=== PATIENT | male | born 1965 | race Caucasian/White ===

== ENCOUNTER → 2020-06-02 | Outpatient (CLI) | payer BC ==
[2020-06-02 16:19] LABS: Basophils # (A) 0.1 k/uL (0-0.2); Basophils % (A) 1 %; Eosinophils # (A) 0.2 k/uL (0-0.7); Eosinophils % (A) 3 %; HCT 43.6 % (39.0-53.0); HGB 14.3 gm/dL (13.0-17.5); Lymphocytes # (A) 1.9 k/uL (1.0-4.8); Lymphocytes % (A) 30 %; MCH 29.6 pg (25.0-35.0); MCHC 32.7 g/dL (31.0-37.0); MCV 90.6 fL (80.0-100.0); Mean Platelet Volume 8.1; Monocytes # (A) 0.5 k/uL (0-1.0); Monocytes % (A) 7 %; Neutrophils # (A) 3.6 k/uL (1.3-7.7); Neutrophils % (A) 57 %; Platelet Count 182 k/uL (150-450); RBC 4.82 m/uL (4.30-5.90); RDW 12.5 % (11.5-15.5); WBC 6.3 k/uL (3.8-10.6)
[2020-06-02 16:27] LABS: Potassium 4.1 mmol/L (3.5-5.1)
== END | disposition home or self-care (01) ==
LOC: LABPAT 15:52
PROVIDERS: ATTEND Orthopaedic Surgery
DX: Z01.818 Encounter for other preprocedural examination (principal); M75.42 Impingement syndrome of left shoulder
CPT/HCPCS: 36415; 80051; 85025; 93005

== ENCOUNTER 2020-06-08 08:56 | Day surgery (SDC) | payer BC ==
[2020-06-06 14:49] VITALS: BMI 33.3
--- NOTE | 2020-06-07 14:04 | HP ---
HISTORY AND PHYSICAL DATE OF SURGERY: 06/08/2020 Aroldo Stein is a 54-year-old patient seen with progressive left shoulder pain. We discussed options, he elected to proceed with arthroscopy. Consent regarding procedure was obtained. PAST MEDICAL HISTORY: Noncontributory. PAST SURGICAL HISTORY: Right shoulder arthroscopy, finger surgery. DAILY MEDICATIONS: None. ALLERGIES: None. SOCIAL HISTORY: He denies current tobacco use. PHYSICAL EVALUATION OF THE LEFT SHOULDER: Flexion is 140, abduction is 120, external rotation is 30 with weakness, tenderness along the anterior lateral acromion rotator cuff insertion site. Impingement sign is positive at 90 degrees. Distal neurovascular exam is intact. Drop-arm sign positive. RADIOGRAPHS LEFT SHOULDER: Type 2 anterior acromion, acromioclavicular joint osteoarthritis and cystic changes of the greater tuberosity. An MRI of the left shoulder revealed a partial rotator cuff tendon tear, labral tear and biceps tendinitis. IMPRESSION: 1. Left shoulder impingement with rotator cuff tear. 2. Left shoulder acromioclavicular joint osteoarthritis. 3. Left shoulder bicipital tendinitis. PLAN: Left shoulder arthroscopy with subacromial decompression, arthroscopic rotator cuff repair, Mariam procedure, probable biceps tenotomy and debridement. MMODL / IJN: [id number] /
[~2020-06-08 08:56] MED LIST: DEXAMETHASONE SOD PHOSPHATE 10 MG/ML 1 ML VIAL IV ONE; HYDROmorphone 0.5 MG/0.5 ML SYRINGE IVP PRN; LIDOCAINE 1% (10MG/ML) FOR IV START INTRADERMA PRN; MIDAZOLAM 2 MG/2 ML VIAL IV PRN; ONDANSETRON 4 MG/2 ML VIAL IVP ONE
[2020-06-08] MEDS: LACTATED RINGERS 1,000 ML IV SCH ×2 (09:28→10:35)
--- NOTE | 2020-06-08 10:12 | P.ANPRN ---
Procedure Note - Anesthesia - Nerve Block Performed Left Interscalene Single Time Out Performed: Yes ([id number]) Date of Procedure: 06/08/20 Procedure Start Time: 09:57 Procedure Stop Time: 10:05 Location of Patient: PreOp Indication: Acute Post-Operative Pain, Analgesia, Requested by Surgeon Specifically requested for management of pain by DrRehan: Alejandro Angeles Sedation Type: Sedate with meaningful contact maintained Preparation: Sterile Prep Position: Supine Needle Types: Pajunk Needle Gauge: 21 Ultrasound used to visualize needle placement: Yes Ultrasound used to observe medication spread: Yes Injectate: 0.5% Ropivacaine (see comment for volume) (20 mL) Blood Aspirated: No Pain Paresthesia on Injection Noted: No Resistance on Injection: Normal Image Stored and Saved: Yes Events: Uneventful and Well Tolerated
[2020-06-08 10:16] VITALS: RESP 16
[2020-06-08] MEDS ORDERED: SUCCINYLCHOLINE CHLORIDE 100 MG/5 ML SYR IV ONE (10:30)
[2020-06-08] MEDS ORDERED: LIDOCAINE 1% INJ 10MG/ML (20 ML MDV) ONE (10:30)
[2020-06-08] MEDS ORDERED: ROPIVACAINE 5 MG/ML 30 ML VIAL ONE (10:30)
[2020-06-08] MEDS ORDERED: MIDAZOLAM 2 MG/2 ML VIAL ONE (10:30)
[2020-06-08] MEDS ORDERED: PROPOFOL 10 MG/ML 20 ML VIAL IV ONE (10:30)
[2020-06-08] MEDS ORDERED: fentaNYL (PF) 50 MCG/ML 2 ML AMP ONE (10:30)
[2020-06-08 12:20] VITALS: TEMP 96.8
--- NOTE | 2020-06-08 12:30 | P.OP ---
Date of Procedure: 06/08/20 Preoperative Diagnosis: Left shoulder impingement Postoperative Diagnosis: 1. Left shoulder rotator cuff tear 2. Left shoulder impingement 3. Left shoulder acromioclavicular joint osteoarthritis 4. Left shoulder partial long head biceps tendon tear 5. Left shoulder superficial labral tear Procedure(s) Performed: 1. Left shoulder arthroscopic rotator cuff repair 2. Left shoulder arthroscopic subacromial decompression 3. Left shoulder arthroscopic Mariam procedure 4. Left shoulder arthroscopic biceps tenotomy 5. Left shoulder debridement labral tear Implants: 14.75 Arthrex swivel lock anchor Anesthesia: GETA, regional (Interscalene block) Surgeon: Alejandro Angeles [employer] Vice President #1: Estiven Leahy Estimated Blood Loss (ml): 7 Pathology: none sent Condition: stable Disposition: PACU Indications for Procedure: 54-year-old patient seen with progressive left shoulder pain. After treatment options were discussed, he elected to proceed with arthroscopy. Operative Findings: See description of procedure Description of Procedure: Patient underwent an interscalene block by department of anesthesia. The patient was then taken to the operative suite. The patient underwent a general anesthetic by the department of anesthesia. The patient was placed into a lateral position and secured. There was appropriate padding of the bony prominence. Left shoulder was then prepped and draped in normal sterile orthopedic fashion. We placed the extremity in 10 pounds of longitudinal traction. A posterior incision was now made for a posterior working portal site. The trocar and cannula were inserted into the glenohumeral joint. Arthroscopy was initiated. Spinal needle was now inserted anteriorly, to ascertain the anterior working portal site. An incision was now made in that area, a trocar was inserted followed by a probe. There was superficial tearing of the superior labrum. There was partial tearing and hyperemia long head biceps tendon. There were grade 1 chondromalacia changes of glenohumeral joint. I performed an arthroscopic biceps tenotomy. I debrided that superficial labral tear. Residual labrum was probed and found to be stable. Instruments now removed from glenohumeral joint. Utilizing the posterior working portal site, the trocar and cannula were inserted into the subacromial space. Arthroscopy initiated. I made an incision 2 fingerbreadths lateral to the acromion. I introduced my trocar followed by my ArthroCare ablator. I now began ablating thick subacromial bursal tissue, which exposed the undersurface of the anterior acromion. There was diminished subacromial space. There was a very prominent anterior acromion. A motorized bur was introduced and a subacromial decompression was performed. I also excised some osteophytes off the inferior aspect of the distal clavicle. The AC joint was visualized and noted to be fairly arthritic. The motorized bur was introduced in the anterior portal site and a Mariam procedure was performed without difficulty, decompressing the AC joint nicely. I turned my attention to the rotator cuff tendon. I noted some partial tearing along the distal supraspinatus area. Upon probing the area there was no obvious full-thickness perforation. I motorize shaver to debride the tendon getting down to stable tendon tissue. The defect measured 11.5 cm but was freely mobile over the footprint. I abraded the footprint with a motorized bur. I passed 2 everted mattress sutures through good bites of rotator cuff tendon. A partial hole and the footprint for insertional anchor. All 4 limbs of suture were now passed through the eyelet of a 4.75 Arthrex swivel lock anchor. The eyelet was now placed into the pre-punch hole. I held it in position while Rober ARCHER tensioned all 4 sutures and deployed the anchor with good fixation noted. All residual suture limbs were now clipped. We had good compression of the tendon along the entire footprint. I injected 1 mL Renyte intra-articular. Instruments now removed from the portal sites. All portal sites were approximated with nylon suture. Sterile dressings were applied followed by a shoulder sling. Estiven ARCHER assisted in this complex case. The patient was awakened, transferred to a bed, and taken to recovery in stable condition.
[2020-06-08 13:16] VITALS: BP 140/89; PULSE 64
== END 2020-06-08 13:40 | disposition home or self-care (01) ==
LOC: OR 08:56
PROVIDERS: ATTEND Orthopaedic Surgery
DX: M75.112 Incomplete rotator cuff tear or rupture of left shoulder, not specified as traumatic (principal); M75.42 Impingement syndrome of left shoulder; M19.012 Primary osteoarthritis, left shoulder; M75.22 Bicipital tendinitis, left shoulder; S46.112A Strain of muscle, fascia and tendon of long head of biceps, left arm, initial encounter; S43.432A Superior glenoid labrum lesion of left shoulder, initial encounter; M25.712 Osteophyte, left shoulder; Z98.890 Other specified postprocedural states
CPT/HCPCS: 64415; 76942; 29824; 29826; 29827; Q4212; J2250; J1100; J0690; J2405; J2001; J3010; J2795; J0330; J2704

== ENCOUNTER 2020-09-05 16:24 | Observation (INO) | payer BC ==
[2020-09-05 17:46] LABS: Basophils # (A) 0.1 k/uL (0-0.2); Basophils % (A) 1 %; Eosinophils # (A) 0.3 k/uL (0-0.7); Eosinophils % (A) 3 %; HCT 44.5 % (39.0-53.0); HGB 15.1 gm/dL (13.0-17.5); Lymphocytes # (A) 2.2 k/uL (1.0-4.8); Lymphocytes % (A) 28 %; MCH 30.4 pg (25.0-35.0); MCHC 33.9 g/dL (31.0-37.0); MCV 89.7 fL (80.0-100.0); Mean Platelet Volume 8.1; Monocytes # (A) 0.5 k/uL (0-1.0); Monocytes % (A) 7 %; Neutrophils # (A) 4.6 k/uL (1.3-7.7); Neutrophils % (A) 59 %; Platelet Count 199 k/uL (150-450); RBC 4.96 m/uL (4.30-5.90); RDW 12.6 % (11.5-15.5); WBC 7.8 k/uL (3.8-10.6)
[2020-09-05 17:55] LABS: INR 0.9 (<1.2); Partial Thromboplastin Time 23.3 sec (22.0-30.0); Prothrombin Time 10.2 sec (9.0-12.0)
[2020-09-05 17:58] LABS: ALT 44 U/L (4-49); AST 36 U/L (17-59); African American GFR (CKD) >90 (>60 ml/min/1.73 sqM); Albumin 4.2 g/dL (3.5-5.0); Alkaline Phosphatase 92 U/L (38-126); Anion Gap 8 mmol/L; Blood Urea Nitrogen 18 mg/dL (9-20); Calcium 9.6 mg/dL (8.4-10.2); Carbon Dioxide 25 mmol/L (22-30); Chloride 108 mmol/L (98-107); Glucose 87 mg/dL (74-99); Non-African American GFR(CKD) >90 (>60 ml/min/1.73 sqM); Potassium 4.6 mmol/L (3.5-5.1); Sodium 141 mmol/L (137-145); Total Bilirubin 0.5 mg/dL (0.2-1.3); Total Protein 7.5 g/dL (6.3-8.2)
[2020-09-05] MEDS ORDERED: NITROGLYCERIN OINT 1 INCH/GM PACKET TOPICAL STA (18:05)
[2020-09-05] MEDS ORDERED: ASPIRIN 81 MG PO STA (18:05)
--- NOTE | 2020-09-05 18:08 | ED ---
General Adult HPI - General Chief complaint: Chest Pain Stated complaint: Chest pain Time Seen by Provider: 09/05/20 16:40 Source: patient, family, RN notes reviewed Mode of arrival: wheelchair Limitations: no limitations - History of Present Illness Initial comments: Patient is a pleasant 54-year-old male presenting to the emergency Department with complaints of chest discomfort. Onset of symptoms was a few days ago. Symptoms have been waxing and waning. Symptoms are mild at this time. Symptoms are not since early exertional. Patient does have some chest discomfort that is difficult for him to describe. There is some mild palpitations. No associated dyspnea, nausea, or diaphoresis. - Related Data Previous Rx's Medication Instructions Recorded Hydrocodone/Acetaminophen [[place] 1 each PO Q6H PRN #21 tab 06/08/20 10325] Allergies Allergy/AdvReac Type Severity Reaction Status Date / Time No Known Allergies Allergy Verified 09/05/20 16:32 Review of Systems ROS Statement: Those systems with pertinent positive or pertinent negative responses have been documented in the HPI. ROS Other: All systems not noted in ROS Statement are negative. Constitutional: Denies: fever Eyes: Denies: eye pain ENT: Denies: ear pain Respiratory: Denies: dyspnea Cardiovascular: Reports: chest pain, palpitations Endocrine: Denies: fatigue Gastrointestinal: Denies: abdominal pain Genitourinary: Denies: dysuria Musculoskeletal: Denies: back pain Skin: Denies: rash Neurological: Denies: weakness Past Medical History Past Medical History: No Reported History History of Any Multi-Drug Resistant Organisms: None Reported Past Surgical History: Orthopedic Surgery Additional Past Surgical History / Comment(s): rt upper arm sx. multiple rt ear sx. lt middle finger sx Past Anesthesia/Blood Transfusion Reactions: No Reported Reaction Past Psychological History: No Psychological Hx Reported Smoking Status: Never smoker Past Alcohol Use History: None Reported Past Drug Use History: None Reported - Past Family History Father Family Medical History: Cancer General Exam Limitations: no limitations General appearance: alert, in no apparent distress Head exam: Present: normocephalic Eye exam: Present: normal appearance Neck exam: Present: normal inspection Respiratory exam: Present: normal lung sounds bilaterally. Absent: chest wall tenderness Cardiovascular Exam: Present: regular rate, normal rhythm Expanded Peripheral pulses: 2+: Radial (R), Radial (L), Posterior Tibialis (R), Posterior Tibialis (L) GI/Abdominal exam: Present: soft. Absent: tenderness Extremities exam: Present: normal inspection. Absent: pedal edema, calf tenderness Neurological exam: Present: alert Psychiatric exam: Present: normal affect, normal mood Skin exam: Present: normal color Course Vital Signs 09/05/20 09/05/20 16:29 18:25 Temperature 98.8 F Pulse Rate 66 66 Respiratory 18 16 Rate Blood Pressure 134/81 132/89 O2 Sat by Pulse 96 98 Oximetry EKG Findings - EKG Comments: EKG Findings:: Normal sinus rhythm at 60. MS 162. QRS 160. QT 434. QTC 434. Left axis. Right bundle branch block. No acute ST change. Medical Decision Making - Medical Decision Making Patient reevaluated and resting comfortably in bed. Symptoms have improved with nitroglycerin. Patient updated on results and plan. Case was discussed in detail with Dr. Zamorano, who will admit covering for Dr. Hart. - Lab Data Result diagrams: 09/05/20 17:34 09/05/20 17:34 Lab Results 09/05/20 09/05/20 09/05/20 Range/Units 17:34 17:34 17:34 WBC 7.8 (3.8-10.6) k/uL RBC 4.96 (4.30-5.90) m/uL Hgb 15.1 (13.0-17.5) gm/dL Hct 44.5 (39.0-53.0) % MCV 89.7 (80.0-100.0) fL MCH 30.4 (25.0-35.0) pg MCHC 33.9 (31.0-37.0) g/dL RDW 12.6 (11.5-15.5) % Plt Count 199 (150-450) k/uL MPV 8.1 Neutrophils % 59 % Lymphocytes % 28 % Monocytes % 7 % Eosinophils % 3 % Basophils % 1 % Neutrophils # 4.6 (1.3-7.7) k/uL Lymphocytes # 2.2 (1.0-4.8) k/uL Monocytes # 0.5 (0-1.0) k/uL Eosinophils # 0.3 (0-0.7) k/uL Basophils # 0.1 (0-0.2) k/uL PT 10.2 (9.0-12.0) sec INR 0.9 (<1.2) APTT 23.3 (22.0-30.0) sec D-Dimer (<0.60) mg/L FEU Sodium 141 (137-145) mmol/L Potassium 4.6 (3.5-5.1) mmol/L Chloride 108 H (98-107) mmol/L Carbon Dioxide 25 (22-30) mmol/L Anion Gap 8 mmol/L BUN 18 (9-20) mg/dL Creatinine 0.78 (0.66-1.25) mg/dL Est GFR (CKD-EPI)AfAm >90 (>60 ml/min/1.73 sqM) Est GFR (CKD-EPI)NonAf >90 (>60 ml/min/1.73 sqM) Glucose 87 (74-99) mg/dL Calcium 9.6 (8.4-10.2) mg/dL Total Bilirubin 0.5 (0.2-1.3) mg/dL AST 36 (17-59) U/L ALT 44 (4-49) U/L Alkaline Phosphatase 92 (38-126) U/L Troponin I (0.000-0.034) ng/mL Total Protein 7.5 (6.3-8.2) g/dL Albumin 4.2 (3.5-5.0) g/dL 09/05/20 09/05/20 Range/Units 17:34 17:34 WBC (3.8-10.6) k/uL RBC (4.30-5.90) m/uL Hgb (13.0-17.5) gm/dL Hct (39.0-53.0) % MCV (80.0-100.0) fL MCH (25.0-35.0) pg MCHC (31.0-37.0) g/dL RDW (11.5-15.5) % Plt Count (150-450) k/uL MPV Neutrophils % % Lymphocytes % % Monocytes % % Eosinophils % % Basophils % % Neutrophils # (1.3-7.7) k/uL Lymphocytes # (1.0-4.8) k/uL Monocytes # (0-1.0) k/uL Eosinophils # (0-0.7) k/uL Basophils # (0-0.2) k/uL PT (9.0-12.0) sec INR (<1.2) APTT (22.0-30.0) sec D-Dimer 0.45 (<0.60) mg/L FEU Sodium (137-145) mmol/L Potassium (3.5-5.1) mmol/L Chloride (98-107) mmol/L Carbon Dioxide (22-30) mmol/L Anion Gap mmol/L BUN (9-20) mg/dL Creatinine (0.66-1.25) mg/dL Est GFR (CKD-EPI)AfAm (>60 ml/min/1.73 sqM) Est GFR (CKD-EPI)NonAf (>60 ml/min/1.73 sqM) Glucose (74-99) mg/dL Calcium (8.4-10.2) mg/dL Total Bilirubin (0.2-1.3) mg/dL AST (17-59) U/L ALT (4-49) U/L Alkaline Phosphatase (38-126) U/L Troponin I <0.012 (0.000-0.034) ng/mL Total Protein (6.3-8.2) g/dL Albumin (3.5-5.0) g/dL - Radiology Data Radiology results: image reviewed (Chest x-ray shows no acute process) Disposition Clinical Impression: Chest pain Disposition: ADMITTED IP TO THIS [facility] Is patient prescribed a controlled substance at d/c from ED?: No Referrals: Rodrigue Stockton MD [Primary Care Provider] - 1-2 days Decision Time: 19:08
--- NOTE | 2020-09-05 18:18 | XR ---
EXAMINATION TYPE: XR chest 1V portable DATE OF EXAM: 09/05/2020 COMPARISON: NONE HISTORY: Chest pain TECHNIQUE: Single view FINDINGS: Heart and mediastinum are normal. Lungs are clear. Diaphragm is normal. Bony thorax appears normal. IMPRESSION: Normal chest.
[2020-09-05] MEDS ORDERED: NITROGLYCERIN SL TABS 0.4 MG TAB SUBLINGUAL PRN (19:08)
[2020-09-06] MEDS: NITROGLYCERIN OINT 1 INCH/GM PACKET TOPICAL SCH ×2 (02:10→07:48)
[2020-09-06 07:08] LABS: Cholesterol 186 mg/dL (<200); HDL Cholesterol 33 mg/dL (40-60); LDL Cholesterol,Calculated 130 mg/dL (0-99); Triglycerides 113 mg/dL (<150)
[2020-09-06 08:45] VITALS: TEMP 98.2
[2020-09-06] MEDS ORDERED: ASPIRIN 325 MG TAB PO SCH (09:00)
[2020-09-06 09:38] VITALS: RESP 16
--- NOTE | 2020-09-06 10:12 | P.CRDCN ---
History of Present Illness Consult date: 09/06/20 History of present illness: CHIEF COMPLAINT: Chest pain HISTORY OF PRESENT ILLNESS: This is a 54-year-old male with no significant past medical history. The patient does not follow with a bath steward. We have been asked to see the patient in consultation for chest pain. Patient states he began having some left-sided chest pain that started approximately 4 days ago. He describes this as a heaviness. He denies any shortness of breath. Denies dizziness or lightheadedness. Denies nausea or vomiting. The pain is not worse with movement or deep inspiration. The patient did have a recent rotator cuff repair approximately 12 weeks ago. Patient states she thought the pain was secondary to his physical therapy for his shoulder. He states he stopped doing all the exercises prescribed to him by his therapists, but he continued to have the discomfort so he presented to the ER for further evaluation. Patient states his mother had a CABG in her 80s, his sister had a CABG in her 70s and his other sister has a history of atrial fibrillation. DIAGNOSTICS: EKG reveals sinus mechanism with right bundle branch block. No signs of acute ischemia. Chest xray negative for acute process Laboratory data: WBC 7.8. Hemoglobin 15.1. Platelet count 199. D-dimer 0.45. Sodium 141. Potassium 4.6. BUN 18. Creatinine 0.78. Troponin negative 3. Current home cardiac medications include none REVIEW OF SYSTEMS: At the time of my exam: CONSTITUTIONAL: Denies fever or chills. HEENT: Denies blurred vision, vision changes, or eye pain. Denies hemoptysis CARDIOVASCULAR: Denies chest pain, orthopnea, PND or palpitations RESPIRATORY: No shortness of breath. GASTROINTESTINAL: Denies abdominal pain. Denies nausea or vomiting. HEMATOLOGIC: Denies bleeding disorders. GENITOURINARY: Denies any blood in urine. SKIN: Denies pruitis. Denies rash. PHYSICAL EXAM: VITAL SIGNS: Reviewed. GENERAL: Well-developed in no acute distress. HEENT: Head is normocephalic. Pupils are equal, round. Sclerae anicteric. Mucous membranes of the mouth are moist. Neck supple. No JVD or thyromegaly LUNGS: Respirations even and unlabored. Lungs essentially clear to auscultation bilaterally. HEART: Regular rate and rhythm. S1 and S2 heard. ABDOMEN: Soft. Nondistended. Nontender. EXTREMITIES: Normal range of motion. No clubbing or cyanosis. Peripheral pulses intact. No lower extremity edema NEUROLOGIC: Awake and alert. Oriented x 3. ASSESSMENT: Chest pain, troponins negative 3 Recent rotator cuff repair Family history of coronary artery disease PLAN: An acute coronary event has been ruled out Obtain 2-D echo to assess cardiac structure and function Patient to undergo stress echo today to assess for reversible ischemia Nurse practitioner note has been reviewed by physician. Signing provider agrees with the documented findings, assessment, and plan of care. Past Medical History Past Medical History: No Reported History History of Any Multi-Drug Resistant Organisms: None Reported Past Surgical History: Orthopedic Surgery Additional Past Surgical History / Comment(s): rt upper arm sx. multiple rt ear sx. lt middle finger sx Past Anesthesia/Blood Transfusion Reactions: No Reported Reaction Past Psychological History: No Psychological Hx Reported Smoking Status: Never smoker Past Alcohol Use History: None Reported Past Drug Use History: None Reported - Past Family History Father Family Medical History: Cancer Medications and Allergies Home Medications Medication Instructions Recorded Confirmed Type Cholecalciferol [Vitamin D3 (25 1,000 unit PO DAILY 09/05/20 09/05/20 History Mcg = 1000 Iu)] Multivitamins, Thera [Multivitamin 1 tab PO DAILY 09/05/20 09/05/20 History (formulary)] Zinc Gluconate [Zinc] 50 mg PO DAILY 09/05/20 09/05/20 History Allergies Allergy/AdvReac Type Severity Reaction Status Date / Time No Known Allergies Allergy Verified 09/05/20 19:06 Physical Exam Vitals: Vital Signs Temp Pulse Pulse Pulse Resp BP BP 09/06/20 08:50 90 16 148/85 09/06/20 08:43 98.2 F 66 18 120/74 09/06/20 08:38 98.4 F 70 17 120/74 09/06/20 07:41 98.4 F 57 L 16 98/55 09/06/20 07:39 58 L 09/06/20 06:49 98.1 F 63 14 94/64 09/06/20 03:01 98.1 F 59 L 64 16 124/85 09/05/20 22:18 98 F 57 L 15 112/72 09/05/20 19:27 98 F 63 15 111/70 09/05/20 18:25 66 16 132/89 01/04/21 16:29 98.8 F 66 18 134/81 Pulse Ox 09/06/20 08:50 97 09/06/20 08:43 98 09/06/20 08:38 99 09/06/20 07:41 97 09/06/20 07:39 09/06/20 06:49 98 09/06/20 03:01 98 09/05/20 22:18 96 09/05/20 19:27 99 09/05/20 18:25 98 09/05/20 16:29 96 Intake and Output 09/05/20 09/06/20 09/06/20 22:59 06:59 14:59 Other: # Voids 1 Weight 120.202 kg Results 09/05/20 17:34 09/05/20 17:34 Cardiac Enzymes 09/05/20 09/05/20 09/05/20 Range/Units 17:34 17:34 20:42 AST 36 (17-59) U/L Troponin I <0.012 <0.012 (0.000-0.034) ng/mL 09/05/20 Range/Units 22:56 AST (17-59) U/L Troponin I <0.012 (0.000-0.034) ng/mL Coagulation 09/05/20 Range/Units 17:34 PT 10.2 (9.0-12.0) sec APTT 23.3 (22.0-30.0) sec Lipids 09/06/20 Range/Units 06:41 Triglycerides 113 (<150) mg/dL Cholesterol 186 (<200) mg/dL HDL Cholesterol 33 L (40-60) mg/dL CBC 09/05/20 Range/Units 17:34 WBC 7.8 (3.8-10.6) k/uL RBC 4.96 (4.30-5.90) m/uL Hgb 15.1 (13.0-17.5) gm/dL Hct 44.5 (39.0-53.0) % Plt Count 199 (150-450) k/uL Comprehensive Metabolic Panel 09/05/20 Range/Units 17:34 Sodium 141 (137-145) mmol/L Potassium 4.6 (3.5-5.1) mmol/L Chloride 108 H (98-107) mmol/L Carbon Dioxide 25 (22-30) mmol/L BUN 18 (9-20) mg/dL Creatinine 0.78 (0.66-1.25) mg/dL Glucose 87 (74-99) mg/dL Calcium 9.6 (8.4-10.2) mg/dL AST 36 (17-59) U/L ALT 44 (4-49) U/L Alkaline Phosphatase 92 (38-126) U/L Total Protein 7.5 (6.3-8.2) g/dL Albumin 4.2 (3.5-5.0) g/dL Current Medications Generic Name Dose Route Start Last Admin Trade Name Freq PRN Reason Stop Dose Admin Aspirin 325 mg 09/06/20 09:00 09/06/20 07:50 Aspirin 325 Mg Tab PO 325 mg DAILY BONNIE Administration Nitroglycerin 0.4 mg 09/05/20 19:08 Nitroglycerin Sl Tabs 0.4 Mg Tab SUBLINGUAL Q5M PRN Chest Pain Nitroglycerin 1 inch 09/06/20 00:00 09/06/20 07:48 Nitroglycerin Oint 1 Inch/Gm Packet TOPICAL 1 inch Q6HR BONNIE Administration Sodium Chloride 10 ml 09/05/20 21:00 09/06/20 06:52 Sodium Chloride 0.9% Flush 10 Ml Syringe IV 10 ml BID BONNIE Administration Intake and Output 09/05/20 09/06/20 09/06/20 22:59 06:59 14:59 Other: # Voids 1 Weight 120.202 kg 09/05/20 17:34 09/05/20 17:34
--- NOTE | 2020-09-06 11:42 | ECHOF ---
Referral Reason:LV function, chest pain MEASUREMENTS -------- HEIGHT: 188.0 cm WEIGHT: 120.2 kg BP: 98/55 RVIDd: 3.5 cm (< 3.3) IVSd: 1.3 cm (0.6 - 1.1) LVIDd: 4.3 cm (3.9 - 5.3) LVPWd: 1.2 cm (0.6 - 1.1) IVSs: 1.5 cm LVIDs: 2.7 cm LVPWs: 1.6 cm LA Diam: 2.9 cm (2.7 - 3.8) LAESV Index (A-L): 20.87 ml/m Ao Diam: 3.8 cm (2.0 - 3.7) AV Cusp: 2.4 cm (1.5 - 2.6) MV EXCURSION: 20.954 mm (> 18.000) MV EF SLOPE: 135 mm/s (70 - 150) EPSS: 0.6 cm MV E Silvestre: 0.82 m/s MV DecT: 156 ms MV A Silvestre: 0.71 m/s MV E/A Ratio: 1.14 RAP: 5.00 mmHg RVSP: 17.58 mmHg FINDINGS -------- Sinus rhythm. This was a technically adequate study. The left ventricular size is normal. There is mild concentric left ventricular hypertrophy. Overa ll left ventricular systolic function is normal with, an EF between 60 - 65 %. The right ventricle is mildly enlarged. Normal LA size by volume 22+/-6 ml/m2. The right atrium is normal in size. Interatrial and interventricular septum intact. The aortic valve is trileaflet and appears structurally normal. The mitral valve is normal. Trace tricuspid regurgitation present. Right ventricular systolic pressure is normal at < 35 mmHg. There is no pulmonic regurgitation present. The aortic root is dilated measuring 3.8cm. IVC Not well visulized. There is no pericardial effusion. CONCLUSIONS -------- 1. The left ventricular size is normal. 2. There is mild concentric left ventricular hypertrophy. 3. Overall left ventricular systolic function is normal with, an EF between 60 - 65 %. 4. The right ventricle is mildly enlarged. 5. Trace tricuspid regurgitation present. 6. There is no pericardial effusion. HR PAYROLL COORDINATOR: Haleigh Corbin [facility]
[2020-09-06 14:50] VITALS: BP 133/78
[2020-09-06 14:55] VITALS: PULSE 78
--- NOTE | 2020-09-06 21:12 | P.HPIM ---
History of Present Illness H&P Date: 09/06/20 Chief Complaint: Heavy pulsation History of presenting complaint: This is a pleasant 54-year-old patient of Dr. Brent carson from [place]. Rather good health. For 3-4 days has been noticing some heavy pulsation in the chest. Present on and off. Has noticed more when he is lying down. Has noticed increased burping. No dizziness, lightheadedness no shortness of br eath. No fever no chills. Has a good excise tolerance. Relevant unremarkable possible medical history. Decided to come in for the same. 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 . Physical examination: VITAL SIGNS: 98.2, 66, 18, 120/74, 98% on room air GENERAL: 34, sitting up in a chair, comfortable. EYES: Pupils equal. Conjunctiva normal. HEENT: External appearance of nose and ears normal, oral cavity grossly normal. NECK: JVD not raised; masses not palpable. HEART: First and second heart sounds are normal; no edema. LUNGS: Respiratory rate normal; clear to auscultation. ABDOMEN: Soft, nontender, liver spleen not palpable, no masses palpable. PSYCH: Alert and oriented x3; mood and affect normal. NEUROLOGICAL: Cranial nerves grossly intact; no facial asymmetry, power and sensation grossly intact. LYMPHATICS: No lymph nodes palpable in the axilla and neck INVESTIGATIONS, reviewed in the clinical context: White count 7.8 hemoglobin 15.1 and platelets 199 potassium 4.6 creatinine 0.78 Troponin I 3 negative LDL 1:30 EKG tracing personally reviewed by me-sinus rhythm, right bundle branch block Chest x-ray film personally reviewed by me-unremarkable Assessment: -Intermittent anterior chest wall pain. Somewhat atypical. Rule out a cardiac cause. -Obesity BMI 34.0 Plan: Patient has received aspirin and Nitropaste. Cartilage he was consulted. They ordered a stress test. Past Medical History Past Medical History: No Reported History History of Any Multi-Drug Resistant Organisms: None Reported Past Surgical History: Orthopedic Surgery Additional Past Surgical History / Comment(s): rt upper arm sx. multiple rt ear sx. lt middle finger sx Past Anesthesia/Blood Transfusion Reactions: No Reported Reaction Past Psychological History: No Psychological Hx Reported Smoking Status: Never smoker Past Alcohol Use History: None Reported Past Drug Use History: None Reported - Past Family History Father Family Medical History: Cancer Medications and Allergies Home Medications Medication Instructions Recorded Confirmed Type Cholecalciferol [Vitamin D3 (25 1,000 unit PO DAILY 09/05/20 09/05/20 History Mcg = 1000 Iu)] Famotidine [Pepcid] 20 mg PO BID #60 tablet 09/06/20 Rx Allergies Allergy/AdvReac Type Severity Reaction Status Date / Time No Known Allergies Allergy Verified 09/05/20 19:06 Physical Exam Vitals: Vital Signs Temp Pulse Pulse Pulse Resp BP BP 09/06/20 08:50 90 16 148/85 09/06/20 08:43 98.2 F 66 18 120/74 09/06/20 08:38 98.4 F 70 17 120/74 09/06/20 07:41 98.4 F 57 L 16 98/55 09/06/20 07:39 58 L 09/06/20 06:49 98.1 F 63 14 94/64 09/06/20 03:01 98.1 F 59 L 64 16 124/85 09/05/20 22:18 98 F 57 L 15 112/72 09/05/20 19:27 98 F 63 15 111/70 09/05/20 18:25 66 16 132/89 09/05/20 16:29 98.8 F 66 18 134/81 Pulse Ox 09/06/20 08:50 97 09/06/20 08:43 98 09/06/20 08:38 99 09/06/20 07:41 97 09/06/20 07:39 09/06/20 06:49 98 09/06/20 03:01 98 09/05/20 22:18 96 09/05/20 19:27 99 09/05/20 18:25 98 09/05/20 16:29 96 Intake and Output 09/05/20 09/06/20 09/06/20 22:59 06:59 14:59 Other: # Voids 1 Weight 120.202 kg Results CBC & Chem 7: 09/05/20 17:34 09/05/20 17:34 Labs: Abnormal Lab Results - Last 24 Hours (Table) 09/05/20 09/06/20 Range/Units 17:34 06:41 Chloride 108 H (98-107) mmol/L LDL Cholesterol, Calc 130 H (0-99) mg/dL HDL Cholesterol 33 L (40-60) mg/dL
--- NOTE | 2020-09-06 21:16 | P.DS ---
Providers Date of admission: 09/05/20 19:08 Expected date of discharge: 09/06/20 Attending physician: Carlos Zamorano Consults: 09/05/20 19:08 Consult Physician Urgent Consulting Provider: Krystle Santamaria Consult Reason/Comments: cpy Do you want consulting provider notified?: Yes Primary care physician: [facility] Hospital Course: Chief Complaint: Heavy pulsation History of presenting complaint: This is a pleasant 54-year-old patient of Dr. Brent stockton from [place]. Rather good health. For 3-4 days has been noticing some heavy pulsation in the chest. Present on and off. Has noticed more when he is lying down. Has noticed increased burping. No dizziness, lightheadedness no shortness of breath. No fever no chills. Has a good excise tolerance. Relevant unremarkable possible medical history. Decided to come in for the same. EKG was unremarkable. Stress EKG per cardiology he was negative. Patient was cleared for discharge. Consultation: Dr. Sherron Armendariz from cardiology Physical examination: VITAL SIGNS: 98.2, 66, 18, 120/74, 98% on room air GENERAL: 34, sitting up in a chair, comfortable. EYES: Pupils equal. Conjunctiva normal. HEENT: External appearance of nose and ears normal, oral cavity grossly normal. NECK: JVD not raised; masses not palpable. HEART: First and second heart sounds are normal; no edema. LUNGS: Respiratory rate normal; clear to auscultation. ABDOMEN: Soft, nontender, liver spleen not palpable, no masses palpable. PSYCH: Alert and oriented x3; mood and affect normal. NEUROLOGICAL: Cranial nerves grossly intact; no facial asymmetry, power and sensation grossly intact. LYMPHATICS: No lymph nodes palpable in the axilla and neck INVESTIGATIONS, reviewed in the clinical context: White count 7.8 hemoglobin 15.1 and platelets 199 potassium 4.6 creatinine 0.78 Troponin I 3 negative LDL 1:30 EKG tracing personally reviewed by me-sinus rhythm, right bundle branch block Chest x-ray film personally reviewed by me-unremarkable 2-D echocardiogram-EF 60-65% Stress echocardiogram reported to be normal Assessment: -Intermittent anterior chest wall pain. Noncardiac. -Obesity BMI 34.0 Disposition: Home Patient Condition at Discharge: Stable Plan - Discharge Summary New Discharge Prescriptions: New Famotidine [Pepcid] 20 mg PO BID #60 tablet Continue Cholecalciferol [Vitamin D3 (25 Mcg = 1000 Iu)] 1,000 unit PO DAILY Discontinued Zinc Gluconate [Zinc] 50 mg PO DAILY Multivitamins, Thera [Multivitamin (formulary)] 1 tab PO DAILY Discharge Medication List Cholecalciferol [Vitamin D3 (25 Mcg = 1000 Iu)] 1,000 unit PO DAILY 09/05/20 [History] Famotidine [Pepcid] 20 mg PO BID #60 tablet 09/06/20 [Rx] Follow up Appointment(s)/Referral(s): Rodrigue Stockton MD [Primary Care Provider] - 1-2 days Juma Armendariz MD [STAFF PHYSICIAN] - 6 Weeks Patient Instructions/Handouts: Chest Pain (DC), Cardiac Stress Test (DC) Activity/Diet/Wound Care/Special Instructions: Any questions, please call [facility] (extended stay @ [facility]): [phone]. Discharge Disposition: HOME SELF-CARE
--- NOTE | 2020-09-07 08:25 | ECHOS ---
STRESS ECHOCARDIOGRAM LUMASON: - Vial INDICATION: Chest pain. MEDICATIONS: BASELINE HEART RATE: 62 BASELINE BLOOD PRESSURE: 108/79 MAXIMUM HEART RATE: 153 MAXIMUM BLOOD PRESSURE: 171/76 85% MPHR: 139 100% MPHR: 164 METS: 9.7 MAXIMUM STAGE REACHED: 3 TOTAL EXERCISE TIME: 8 minutes CLINICAL INFORMATION: Baseline EKG shows sinus rhythm with right bundle branch block and nonspecific ST-T wave changes. Patient exercised on Bonifacio protocol for a total of 8 minutes, achieving 9 METs, 93% of predicted maximal heart rate without chest pain or diagnostic ST-segment depression. Baseline echo shows normal left ventricular size, wall motion and systolic function. Postexercise, there is normal hyperdynamic response of all segments of myocardium noted. CONCLUSIONS: 1. Above-average exercise tolerance. 2. Inconclusive EKG part of the stress test due to baseline EKG abnormalities. 3. Negative stress echo. MMALISHAL / CINDYN: [id number] /
== END 2020-09-06 14:53 | disposition home or self-care (01) ==
LOC: EC 16:24 → 1SOBS 19:08
PROVIDERS: ADMIT Hospitalist; ATTEND Hospitalist
DX: R07.89 Other chest pain (principal); R00.2 Palpitations; I45.10 Unspecified right bundle-branch block; R94.31 Abnormal electrocardiogram [ECG] [EKG]; Z98.890 Other specified postprocedural states; E66.9 Obesity, unspecified; Z68.34 Body mass index [BMI] 34.0-34.9, adult; Z79.899 Other long term (current) drug therapy; Z87.39 Personal history of other diseases of the musculoskeletal system and connective tissue; Z80.9 Family history of malignant neoplasm, unspecified; Z82.49 Family history of ischemic heart disease and other diseases of the circulatory system
CPT/HCPCS: 99285; 36415; 93005 ×2; 93306; 93351; 85379; 80061; 80053; 84484; 85025; 85610; 85730; 71045; G0378 ×2

== ENCOUNTER 2021-11-29 07:39 | Day surgery (SDC) | payer BC ==
[2021-11-24 15:59] VITALS: BMI 31.4
[~2021-11-29 07:39] MED LIST changes: -DEXAMETHASONE SOD PHOSPHATE 10 MG/ML 1 ML VIAL IV ONE; -HYDROmorphone 0.5 MG/0.5 ML SYRINGE IVP PRN; +LACTATED RINGERS 1,000 ML IV SCH; -LIDOCAINE 1% (10MG/ML) FOR IV START INTRADERMA PRN; -MIDAZOLAM 2 MG/2 ML VIAL IV PRN; -ONDANSETRON 4 MG/2 ML VIAL IVP ONE
[2021-11-29 08:06] VITALS: TEMP 97
[2021-11-29] MEDS ORDERED: PROPOFOL 10 MG/ML 20 ML VIAL IV ONE (08:39)
--- NOTE | 2021-11-29 09:00 | P.PCN ---
Date of Procedure: 11/29/21 Procedure(s) Performed: BRIEF HISTORY: Patient is a 56-year-old pleasant white male scheduled for an elective colonoscopy as a part of evaluation of screening for colon cancer. PROCEDURE PERFORMED: Colonoscopy snare polypectomy. PREOPERATIVE DIAGNOSIS: Screening for colon cancer. IV sedation per Anesthesia. PROCEDURE: After informed consent was obtained, the patient, was brought into the endoscopy unit. IV sedation was administered by Anesthesia under continuous monitoring. Digital rectal examination was normal. Initially the Olympus CF-160 flexible video colonoscope was then inserted in the rectum, gradually advanced into the cecum without any difficulty. Careful examination was performed as the scope was gradually being withdrawn. Ileocecal valve and the appendiceal orifice were visualized and appeared normal. Prep was excellent. Mucosa of the cecum, appeared normal. In the ascending colon there was a 5 limited polyp that was removed by snare polypectomy. Rest of the ascending colon, transverse colon, descending colon, sigmoid colon, and rectum appeared normal. Scattered sigmoid diverticulosis. Retroflexion was performed in the rectum and no lesions were seen. The patient tolerated the procedure well. IMPRESSION: 5 millimeters ascending colon polyp status post polypectomy Scattered sigmoid diverticulosis RECOMMENDATIONS: Findings of this examination were discussed with the patient as well as isr family. He was advised to follow with the biopsy results. If the biopsies adenoma he can have a repeat colonoscopy in 5 years..
[2021-11-29 09:08] VITALS: RESP 18
[2021-11-29 09:53] VITALS: BP 133/80; PULSE 54
== END 2021-11-29 10:04 | disposition home or self-care (01) ==
LOC: ORWHC2ENDO 07:39
PROVIDERS: ATTEND Internal Medicine Gastroenterology
DX: Z12.11 Encounter for screening for malignant neoplasm of colon (principal); D12.2 Benign neoplasm of ascending colon; E66.9 Obesity, unspecified; Z68.32 Body mass index [BMI] 32.0-32.9, adult; Z98.890 Other specified postprocedural states
CPT/HCPCS: 88305; 45385; J2704